=== PATIENT | male | born 1995 | race African-American/Black ===

== ENCOUNTER 2019-11-05 12:57 | Emergency (ER) | payer SELFPAY ==
[~2019-11-05] VITALS: Ht 170.1 cm; Wt 69.5 kg
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
--- NOTE | 2019-11-05 13:17 | ED Integumentary General ---
General Chief Complaint: Skin/Wound Problems Stated Complaint: DRY / ITCHING FACE Source: patient Exam Limitations: no limitations History of Present Illness Date Seen by Provider: Nov 05, 2019 Time Seen by Provider: 13:12 Initial Comments To ER with complaints of an itchy inflamed villareal region for about 2 months that occurs as an exacerbation about 1 week after shaving. Timing/Duration: intermittent Severity: moderate Associated Symptoms: denies symptoms Allergies and Home Medications Patient Home Medication List Home Medication List Reviewed: Yes Review of Systems Review of Systems Constitutional: see HPI EENTM: see HPI Respiratory: no symptoms reported Cardiovascular: no symptoms reported Genitourinary: no symptoms reported Musculoskeletal: no symptoms reported Skin: see HPI Psychiatric/Neurological: No Symptoms Reported Endocrine: No Symptoms Reported Hematologic/Lymphatic: No Symptoms Reported Past Ejgczyp-Nomcuo-Ohchji Hx Patient Social History Recent Foreign Travel: No Contact w/Someone Who Travel: No Physical Exam Vital Signs Vital Signs - First Documented 11/05/19 13:00 Pulse 68 Resp 18 B/P (MAP) 137/70 (92) Pulse Ox 99 O2 Delivery Room Air Capillary Refill : General Appearance: WD/WN, no apparent distress HEENT: PERRL/EOMI, normal ENT inspection Neck: non-tender, full range of motion, other (abscess or cellulitis, there is the appearance of a folliculitis with pustules around the hair follicles and some scaling skin. He states very itchy.) Respiratory: no respiratory distress, no accessory muscle use Extremities: normal range of motion, non-tender Neurologic/Psychiatric: alert, normal mood/affect, oriented x 3 Skin: normal color, warm/dry Skin Problem Location: face Skin Problem Character: other (pustules) Progress/Results/Core Measures Results/Orders Vital Signs/I&O 11/05/19 13:00 Pulse 68 Resp 18 B/P (MAP) 137/70 (92) Pulse Ox 99 O2 Delivery Room Air Departure Impression Primary Impression: Tinea barbae Disposition: 01 HOME, SELF-CARE Condition: Stable Departure-Patient Inst. Decision time for Depature: 13:15 Referrals: [facility] (PCP/Family) Primary Care Physician Patient Instructions: Bacterial Folliculitis (DC), Fungal Skin Rash Add. Discharge Instructions: 1. Do not shave for a month or so, use just a gia in the meantime. Take the topical antifungal cream in addition to the oral antifungal and oral antibiotic as directed. Follow-up with Dr Marino All discharge instructions reviewed with patient and/or family. Voiced understanding. Scripts Clotrimazole (Clotrimazole) 15 Gm Cream..g. 15 GM TP BID for 7 Days, #1 TUBE Prov: ALLYSON LY APRN 11/05/19 Fluconazole (Diflucan) 150 Mg Tablet 300 MG PO WEEK, #8 TAB Prov: ALLYSON LY APRN 11/05/19 Doxycycline Hyclate (Doxycycline Hyclate) 100 Mg Tablet 100 MG PO BID, #20 TAB 0 Refills Prov: ALLYSON LY APRN 11/05/19 ALLYSON LY APRN Nov 05, 2019 13:17
[2019-11-05] MEDS ORDERED: DOXY100T2 PO (13:22)
[2019-11-05] MEDS ORDERED: FLUC150T PO (13:22)
[2019-11-05] MEDS ORDERED: CLOT15CR5 TP (13:23)
[2019-11-05 13:29] VITALS: BP 137/70
== END 2019-11-05 13:27 | disposition home or self-care (01) ==
LOC: ER 12:59
DX: B35.0 Tinea barbae and tinea capitis (principal)
CPT/HCPCS: 99282

== ENCOUNTER 2021-08-24 10:28 | Emergency (ER) | payer SELFPAY ==
[~2021-08-24] VITALS: Ht 187.9 cm; Wt 68.4 kg
[~2021-08-24 10:28] MED LIST: CLOT15CR28 TP; DOXY100T2 PO; FLUC150T PO
[2021-08-24] MEDS ORDERED: CYCLOBENZAPRINE 10 MG (FLEXERIL) TAB PO STA (11:34)
[2021-08-24] MEDS ORDERED: IBUPROFEN 800 MG (MOTRIN) TAB PO STA (11:34)
[2021-08-24] MEDS ORDERED: CYCL10TA25 PO (11:38)
--- NOTE | 2021-08-24 11:39 | ED Back Pain ---
General Chief Complaint: Back Problems Stated Complaint: L SHOULDER/BACK PAIN Nursing Triage Note: UPPER BACK, LEFT SHOULDER PAIN X1 WEEK. FEELS LIKE ITS WORSENING. FEELS LIKE ITS AFFECTING HIS POSTURE AND HIS ABILITY TO MOVE HIS LEFT ARM FULLY. PT DENIES INJURY. (GARRY CANO) History of Present Illness Date Seen by Provider: Aug 24, 2021 Time Seen by Provider: 11:20 Initial Comments 26-year-old -[place] Citizen male presents for left rhomboid pain that has been present for approximately 1 week. He denies any specific injuries to his back. The pain radiates at times from the rhomboid over into the left shoulder. The patient describes it as "insynchronicity" between his right and left sides. No previous history of injuries to his upper back or left shoulder. 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 He has not taken any Tylenol or ibuprofen for his symptoms. Timing/Duration: 1 Week Severity: Moderate Pain/Injury Location: Other (Left rhomboid) Associated Symptoms: muscle spasms; No weakness, No numbness in legs/feet, No tingling in legs/feet, No sensory/motor loss, No lower back pain (GARRY CANO) Allergies and Home Medications Allergies Coded Allergies: No Known Drug Allergies (Unverified , 08/24/21) Patient Home Medication List Home Medication List Reviewed: Yes (GARRY CANO) Clotrimazole (Clotrimazole) 15 Gm Cream..g., 15 GM TP BID Prescribed by: ALLYSON LY on 11/05/19 1323 Cyclobenzaprine HCl (Cyclobenzaprine HCl) 10 Mg Tablet, 10 MG PO Q8H PRN for SPASMS Prescribed by: GARRY CANO on 08/24/21 1138 Doxycycline Hyclate (Doxycycline Hyclate) 100 Mg Tablet, 100 MG PO BID Prescribed by: ALLYSON LY on 11/05/19 1322 Fluconazole (Diflucan) 150 Mg Tablet, 300 MG PO WEEK Prescribed by: ALLYSON LY on 11/05/19 1322 Review of Systems Constitutional: no symptoms reported, see HPI Musculoskeletal: see HPI, muscle pain (Left rhomboid) (GARRY CANO) All Other Systems Reviewed Negative Unless Noted: Yes (GARRY CANO) Past Utpmgdg-Lwrbny-Ltsnwr Hx Patient Social History Tobacco Use?: No Use of E-Cig and/or Vaping dev: No Substance use?: No Alcohol Use?: Yes Alcohol type: Hard Liquor Alcohol Frequency: Several times a month Pt feels they are or have been: No (GARRY CANO) Immunizations Up To Date Influenza Vaccine Up-to-Date: No; Not Current (GARRY CANO) Past Medical History Surgeries: No Respiratory: No Cardiac: No Neurological: No Genitourinary: No Gastrointestinal: No Musculoskeletal: No Endocrine: No HEENT: No Cancer: No Psychosocial: No Integumentary: No (GARRY CANO) Family Medical History Reviewed Nursing Family Hx (GARRY CANO) Physical Exam Vital Signs Vital Signs - First Documented 08/24/21 10:40 Temp 36.4 Pulse 85 Resp 16 B/P (MAP) 128/68 (88) Pulse Ox 99 O2 Delivery Room Air (SKIP KAUR MD) Vital Signs Capillary Refill : Less Than 3 Seconds (GARRY CANO) Height, Weight, BMI Height: '" Weight: lbs. oz. kg; 19.00 BMI Method: General Appearance: No Apparent Distress, WD/WN Neck: Full Range of Motion, Normal Inspection, Non Tender, Supple, Other (No tenderness along the trapezius muscle.) Cardiovascular: Regular Rate, Rhythm, No Edema, No Murmur, Normal Peripheral Pulses Respiratory: Chest Non Tender, Lungs Clear, Normal Breath Sounds Back: Normal Inspection, No CVA Tenderness Extremity: Normal Capillary Refill, Normal Inspection, Normal Range of Motion, Other (Full range of motion to the left shoulder with no instability. Power in his left upper extremity is 5/5. Exquisite tenderness to palpation in the left rhomboid.) Neurologic/Psychiatric: Alert, Oriented x3, No Motor/Sensory Deficits, Normal Mood/Affect (GARRY CANO) Progress/Results/Core Measures Results/Orders Vital Signs/I&O 08/24/21 08/24/21 10:40 11:54 Temp 36.4 Pulse 85 67 Resp 16 14 B/P (MAP) 128/68 (88) 133/79 Pulse Ox 99 98 O2 Delivery Room Air Room Air (SKIP KAUR MD) Blood Pressure Mean: 88 Departure Impression Primary Impression: Rhomboid muscle strain Qualified Codes: S29.012A - Strain of muscle and tendon of back wall of thorax, initial encounter Disposition: 01 HOME, SELF-CARE Condition: Improved Departure-Patient Inst. Decision time for Depature: 11:30 (GARRY CANO) Referrals: [facility] (PCP/Family) Primary Care Physician Patient Instructions: Back Muscle Strain (DC) Add. Discharge Instructions: Use warm moist towels on the area of discomfort every 2-3 hours. Continue range of motion to your left shoulder. Avoid boxing and any other activities that cause the pain to be worse. You can alternate Tylenol 650 mg with ibuprofen 600 mg every 4 hours for pain. Use the Flexeril 1 tablet every 8 hours as needed for muscle spasms. Follow-up at [facility] if your symptoms are not improving or worsen. Return to the emergency department for new, urgent healthcare problems. All discharge instructions reviewed with patient and/or family. Voiced understanding. Scripts Cyclobenzaprine HCl (Cyclobenzaprine HCl) 10 Mg Tablet 10 MG PO Q8H PRN for SPASMS, #15 TAB 0 Refills Prov: GARRY CANO 08/24/21 ATTENDING PHYSICIAN NOTE: I was physically present as attending physician in the emergency department during the care of this patient, but I was not directly involved in the decision making or delivery of care for this patient. (SKIP KAUR MD) GARRY CANO Aug 24, 2021 11:39 SKIP KAUR MD Aug 25, 2021 06:59
[2021-08-24 11:54] VITALS: BP 133/79
== END 2021-08-24 11:52 | disposition home or self-care (01) ==
LOC: EDUNIT# 10:28 → ER 10:30
DX: S29.012A Strain of muscle and tendon of back wall of thorax, initial encounter (principal); X58.XXXA Exposure to other specified factors, initial encounter
CPT/HCPCS: 99283

== ENCOUNTER 2022-02-01 17:09 | Emergency (ER) | payer SELFPAY ==
[~2022-02-01] VITALS: Ht 190 cm; Wt 77.0 kg
[~2022-02-01 17:09] MED LIST changes: +CYCL10TA25 PO
--- NOTE | 2022-02-01 17:34 | ED Respiratory ---
General Chief Complaint: Respiratory Problems Stated Complaint: ABD PAIN Nursing Triage Note: PT REPORTS TO ED POV FOR SOME SHORTNESS OF AIR ISSUES FOR OVER A MONTH OR TWO. PER PT IT HAS RECENTLY GOTTEN WORSE. PT AMB. TO ROOM 05 WITHOUT DIFFICULTY. PT ALERT AND ORIENTED X'S 4. (JUANITA DE SANTIAGO APRN) History of Present Illness Date Seen by Provider: Feb 01, 2022 Time Seen by Provider: 17:25 Initial Comments Patient arrives to the department with shortness of breath for the past few months. States that he feels like he is breathing with his belly. Denies alcohol or drug use. Has not seen anybody for these symptoms. Denies taking medications on a daily basis. Timing/Duration: other (couple months) Prior Episodes/Possible Cause: frequent episodes Associated Symptoms: No chest pain/soreness, No cough, No dizziness, No muscle aches; shortness of breath; No sore throat (JUANITA DE SANTIAGO APRN) Allergies and Home Medications Allergies Coded Allergies: No Known Drug Allergies (Unverified , 08/24/21) Patient Home Medication List Home Medication List Reviewed: Yes (JUANITA DE SANTIAGO APRN) Clotrimazole (Clotrimazole) 15 Gm Cream..g., 15 GM TP BID Prescribed by: ALLYSON LY on 11/05/19 132 Cyclobenzaprine HCl (Cyclobenzaprine HCl) 10 Mg Tablet, 10 MG PO Q8H PRN for SPASMS Prescribed by: GARRY CANO on 08/24/21 1138 Doxycycline Hyclate (Doxycycline Hyclate) 100 Mg Tablet, 100 MG PO BID Prescribed by: ALLYSON LY on 11/05/19 1322 Fluconazole (Diflucan) 150 Mg Tablet, 300 MG PO WEEK Prescribed by: ALLYSON LY on 11/05/19 1322 Hydroxyzine HCl (Hydroxyzine HCl) 25 Mg Tablet, 25 MG PO TID PRN for ANXIETY Prescribed by: Juanita De Santiago on 02/01/221837 Sulfamethoxazole/Trimethoprim (Bactrim Ds Tablet) 800 Mg-160 Mg Tablet, 1 EACH PO BID Prescribed by: Juanita De Santiago on 02/01/221837 Review of Systems Review of Systems Constitutional: No chills, No dizziness, No fever, No malaise, No weakness EENTM: no symptoms reported Respiratory: No cough, No dyspnea on exertion; short of breath; No stridor, No wheezing Cardiovascular: No chest pain, No palpitations Gastrointestinal: No abdominal pain, No constipation, No diarrhea, No nausea, No vomiting Genitourinary: No dysuria, No frequency Musculoskeletal: No back pain Skin: No pruritus, No rash (JUANITA DE SANTIAGO APRN) All Other Systems Reviewed Negative Unless Noted: Yes (JUANITA DE SANTIAGO APRN) Past Qqcenub-Tuimny-Keoyoh Hx Patient Social History Tobacco Use?: No Use of E-Cig and/or Vaping dev: No E-Cig or Vaping type used: Nicotine, Marijuana Additional E-Cig or Vaping: QUIT TWO YEARS AGO. Use of E-Cig and/or Vaping Cole: Former User Substance use?: No Alcohol Use?: No Pt feels they are or have been: No (JUANITA DE SANTIAGO APRN) Past Medical History Surgery/Hospitalization HX: PT DENIES PMH AND SURGERIES. Surgeries: No Respiratory: No Cardiac: No Neurological: No Genitourinary: No Gastrointestinal: No Musculoskeletal: No Endocrine: No HEENT: No Cancer: No Psychosocial: No Integumentary: No (JUANITA DE SANTIAGO APRN) Family Medical History Reviewed Nursing Family Hx (JUANITA DE SANTIAGO APRN) Physical Exam Vital Signs - First Documented 02/01/22 17:19 Temp 36.9 Pulse 94 Resp 16 B/P (MAP) 132/82 (99) Pulse Ox 96 O2 Delivery Room Air (SKIP KAUR MD) Capillary Refill : Less Than 3 Seconds (JUANITA DE SANTIAGO APRN) Height: '" Weight: lbs. oz. kg; 21.00 BMI Method: General Appearance: WD/WN, no apparent distress Eyes: Bilateral Eye Normal Inspection HEENT: PERRL/EOMI, normal ENT inspection, TMs normal, pharynx normal Neck: non-tender, full range of motion, supple, normal inspection Respiratory: chest non-tender, lungs clear, normal breath sounds, no respiratory distress, no accessory muscle use Cardiovascular: regular rate, rhythm, no edema Gastrointestinal: normal bowel sounds, non tender, soft, no organomegaly Extremities: normal range of motion, non-tender, normal inspection, no pedal edema Neurologic/Psychiatric: alert, normal mood/affect, oriented x 3 Skin: normal color, warm/dry (JUANITA DE SANTIAGO APRN) Progress/Results/Core Measures Suspected Sepsis SIRS Temperature: Pulse: 94 Respiratory Rate: 16 Laboratory Tests 02/01/22 17:40: White Blood Count 5.8 Blood Pressure 132 /82 Mean: 99 Laboratory Tests 02/01/22 17:40: Creatinine 1.14, Platelet Count 252, Total Bilirubin 0.8 (JUANITA DE SANTIAGO APRN) Results/Orders Lab Results Laboratory Tests Test 02/01/22 17:40 02/01/22 17:52 Range/Units White Blood Count 5.8 4.3-11.0 10^3/uL Red Blood Count 4.79 4.30-5.52 10^6/uL Hemoglobin 15.2 13.3-17.7 g/dL Hematocrit 44 40-54 % Mean Corpuscular Volume 91 80-99 fL Mean Corpuscular Hemoglobin 32 25-34 pg Mean Corpuscular Hemoglobin Concent 35 32-36 g/dL Red Cell Distribution Width 10.9 10.0-14.5 % Platelet Count 252 130-400 10^3/uL Mean Platelet Volume 9.6 9.0-12.2 fL Immature Granulocyte % (Auto) 0 % Neutrophils (%) (Auto) 56 42-75 % Lymphocytes (%) (Auto) 32 12-44 % Monocytes (%) (Auto) 11 0-12 % Eosinophils (%) (Auto) 1 0-10 % Basophils (%) (Auto) 0 0-10 % Neutrophils # (Auto) 3.2 1.8-7.8 10^3/uL Lymphocytes # (Auto) 1.9 1.0-4.0 10^3/uL Monocytes # (Auto) 0.6 0.0-1.0 10^3/uL Eosinophils # (Auto) 0.1 0.0-0.3 10^3/uL Basophils # (Auto) 0.0 0.0-0.1 10^3/uL Immature Granulocyte # (Auto) 0.0 0.0-0.1 10^3/uL Sodium Level 137 135-145 MMOL/L Potassium Level 4.1 3.6-5.0 MMOL/L Chloride Level 103 98-107 MMOL/L Carbon Dioxide Level 22 21-32 MMOL/L Anion Gap 12 5-14 MMOL/L Blood Urea Nitrogen 10 7-18 MG/DL Creatinine 1.14 0.60-1.30 MG/DL Estimat Glomerular Filtration Rate 92 BUN/Creatinine Ratio 9 Glucose Level 79 70-105 MG/DL Calcium Level 9.4 8.5-10.1 MG/DL Corrected Calcium 9.2 8.5-10.1 MG/DL Total Bilirubin 0.8 0.1-1.0 MG/DL Aspartate Amino Transf (AST/SGOT) 20 5-34 U/L Alanine Aminotransferase (ALT/SGPT) 14 0-55 U/L Alkaline Phosphatase 57 40-136 U/L Total Protein 7.8 6.4-8.2 GM/DL Albumin 4.3 3.2-4.5 GM/DL Lipase 5 L 8-78 U/L Urine Color JENELLE H Urine Clarity SL CLOUDY Urine pH 6.5 5-9 Urine Specific [place] 1.020 1.016-1.022 Urine Protein 1+ H NEGATIVE Urine Glucose (UA) NEGATIVE NEGATIVE Urine Ketones TRACE H NEGATIVE Urine Nitrite NEGATIVE NEGATIVE Urine Bilirubin 1+ H NEGATIVE Urine Urobilinogen 1.0 < = 1.0 MG/DL Urine Leukocyte Esterase 1+ H NEGATIVE Urine RBC (Auto) NEGATIVE NEGATIVE Urine RBC NONE /HPF Urine WBC 10-25 H /HPF Urine Squamous Epithelial Cells NONE /HPF Urine Crystals NONE /LPF Urine Bacteria FEW H /HPF Urine Casts NONE /LPF Urine Mucus MODERATE H /LPF Urine Culture Indicated YES Urine Opiates Screen NEGATIVE NEGATIVE Urine Oxycodone Screen NEGATIVE NEGATIVE Urine Methadone Screen NEGATIVE NEGATIVE Urine Propoxyphene Screen NEGATIVE NEGATIVE Urine Barbiturates Screen NEGATIVE NEGATIVE Ur Tricyclic Antidepressants Screen NEGATIVE NEGATIVE Urine Phencyclidine Screen NEGATIVE NEGATIVE Urine Amphetamines Screen NEGATIVE NEGATIVE Urine Methamphetamines Screen NEGATIVE NEGATIVE Urine Benzodiazepines Screen NEGATIVE NEGATIVE Urine Cocaine Screen NEGATIVE NEGATIVE Urine Cannabinoids Screen POSITIVE H NEGATIVE (SKIP KAUR MD) Medications Given in ED Current Medications Medications Dose Ordered Sig/Gt Route Start Time Stop Time Status Last Admin Dose Admin Hydroxyzine HCl 50 mg ONCE ONCE PO 02/01/22 17:45 02/01/22 17:46 DC 02/01/22 17:48 50 MG (SKIP KAUR MD) Vital Signs/I&O 02/01/22 02/01/22 17:19 18:48 Temp 36.9 36.9 Pulse 94 81 Resp 16 16 B/P (MAP) 132/82 (99) 115/75 Pulse Ox 96 98 O2 Delivery Room Air Room Air (SKIP KAUR MD) Vital Signs/I&O Capillary Refill : Less Than 3 Seconds (JUANITA DE SANTIAGO APRN) Blood Pressure Mean: 99 Progress Note : Progress Note Patient seems very anxious on initial exam. Will obtain labs and CXR and determine further plan of care based on that. 1824: Spoke to patient in regards to labs and XR results. Based on exam findings here I think that the majority of his symptoms are likely in relation to anxiety. He was not hypoxic while he was here in the department. Drug screen was positive for THC. Initially denied drug use then admitted once asked after the positive screen. Of note, his UA was positive for infection so will go ahead and treat for that. Do not think that is necessarily the cause of his symptoms as he had no urinary complaints. Will send home with Bactrim for the UTI and Hydroxyzine to take for anxiety. Reasons to return to the ER were discussed with patient. (JUANITA DE SANTIAGO APRN) Departure Impression Primary Impression: UTI (urinary tract infection) Qualified Codes: N30.00 - Acute cystitis without hematuria Additional Impression: Anxiety Disposition: HOME, SELF-CARE Condition: Stable Departure-Patient Inst. Decision time for Depature: 18:34 (JUANITA DE SANTIAGO APRN) Referrals: [facility] (PCP/Family) Primary Care Physician Patient Instructions: Urinary Tract Infections in Adults, Anxiety, Adult ED Add. Discharge Instructions: 1. Home and rest. 2. Push fluids. 3. Alternate Tylenol/Ibuprofen as needed for pain. 4. Follow up with PCP for further evaluation and treatment if symptoms continue to persist. 5. Bactrim as directed until finished. 6. Hydroxyzine as directed as needed for anxiety. Be mindful while driving as this medication can cause drowsiness. 7. Return here if worse or concerns. All discharge instructions reviewed with patient and/or family. Voiced understanding. Scripts Hydroxyzine HCl (Hydroxyzine HCl) 25 Mg Tablet 25 MG PO TID PRN for ANXIETY, #20 TAB Prov: JUANITA DE SANTIAGO APRN 02/01/22 Sulfamethoxazole/Trimethoprim (Bactrim Ds Tablet) 800 Mg-160 Mg Tablet 1 EACH PO BID, #14 TAB Prov: JUANITA DE SANTIAGO APRN 02/01/22 ATTENDING NOTE: I was attending physician physically present and available for consultation in the emergency department during the care of this patient. I was not directly involved in the delivery of care or decision making process for this patient during this specific encounter. (SKIP KAUR MD) JUANITA DE SANTIAGO APRN Feb 01, 2022 17:34 SKIP KAUR MD Feb 01, 2022 18:58
[2022-02-01] MEDS ORDERED: hydrOXYzine (ATARAX) 10 MG TAB PO ONE (17:45)
[2022-02-01 17:47] LABS: BASOPHILS % (AUTO) 0 % (0-10); EOSINOPHILS # (AUTO) 0.1 10^3/uL (0.0-0.3); EOSINOPHILS % (AUTO) 1 % (0-10); HEMATOCRIT 44 % (40-54); HEMOGLOBIN 15.2 g/dL (13.3-17.7); LYMPHOCYTES # (AUTO) 1.9 10^3/uL (1.0-4.0); LYMPHOCYTES % (AUTO) 32 % (12-44); MEAN CORPUSCULAR HEMOGLOBIN 32 pg (25-34); MEAN CORPUSCULAR HGB CONC 35 g/dL (32-36); MEAN CORPUSCULAR VOLUME 91 fL (80-99); MEAN PLATELET VOLUME 9.6 fL (9.0-12.2); MONOCYTES # (AUTO) 0.6 10^3/uL (0.0-1.0); MONOCYTES % (AUTO) 11 % (0-12); NEUTROPHILS # (AUTO) 3.2 10^3/uL (1.8-7.8); NEUTROPHILS % (AUTO) 56 % (42-75); PLATELET COUNT 252 10^3/uL (130-400); WHITE BLOOD COUNT 5.8 10^3/uL (4.3-11.0)
[2022-02-01 17:57] LABS: ALBUMIN 4.3 GM/DL (3.2-4.5)
[2022-02-01 17:58] LABS: POTASSIUM 4.1 MMOL/L (3.6-5.0)
[2022-02-01 17:59] LABS: CALCIUM 9.4 MG/DL (8.5-10.1)
[2022-02-01 18:00] LABS: TOTAL PROTEIN 7.8 GM/DL (6.4-8.2)
[2022-02-01 18:02] LABS: BILIRUBIN,TOTAL 0.8 MG/DL (0.1-1.0)
[2022-02-01 18:04] LABS: CLARITY,URINE SL CLOUDY; COLOR,URINE AMBER; GLUCOSE, URINE (UA) NEGATIVE (NEGATIVE); KETONES,URINE TRACE (NEGATIVE); LEUKOCYTE ESTERASE ,URINE 1+ (NEGATIVE); NITRITE,URINE NEGATIVE (NEGATIVE); PH,URINE 6.5 (5-9); PROTEIN,URINE 1+ (NEGATIVE)
[2022-02-01 18:04] LABS: CREATININE SERUM 1.14 MG/DL (0.60-1.30)
--- NOTE | 2022-02-01 18:17 | Diagnostic Imaging Report ---
INDICATION: Shortness of breath. EXAMINATION: Frontal chest was obtained at 6:04 p.m. Heart and mediastinal silhouette are normal in appearance. The lungs are clear. There is no pneumothorax or pleural fluid. IMPRESSION: Negative chest. Dictated by: Dictated on workstation # [id number]
[2022-02-01 18:20] LABS: AMPHETAMINE SCREEN, URINE NEGATIVE (NEGATIVE); BARBITURATE SCREEN URINE NEGATIVE (NEGATIVE); BENZODIAZEPINES SCREEN URINE NEGATIVE (NEGATIVE); CANNABINOID SCREEN, URINE POSITIVE (NEGATIVE); COCAINE SCREEN URINE NEGATIVE (NEGATIVE); METHADONE STAT NEGATIVE (NEGATIVE); OPIATE SCREEN URINE NEGATIVE (NEGATIVE); OXYCODONE STAT NEGATIVE (NEGATIVE); PROPOXYPHENE STAT NEGATIVE (NEGATIVE); TRICYCLIC ANTIDEPRESSANTS SCRE NEGATIVE (NEGATIVE)
[2022-02-01 18:24] LABS: BILIRUBIN,URINE 1+ (NEGATIVE)
[2022-02-01 18:25] LABS: BACTERIA,URINE FEW /HPF
[2022-02-01] MEDS ORDERED: SULF-221 PO (18:38)
[2022-02-01] MEDS ORDERED: HYDR-700 PO (18:38)
[2022-02-01 18:48] VITALS: BP 115/75
== END 2022-02-01 18:48 | disposition home or self-care (01) ==
LOC: EDUNIT# 17:09 → ER 17:15
DX: N39.0 Urinary tract infection, site not specified (principal); F41.9 Anxiety disorder, unspecified; Z87.891 Personal history of nicotine dependence; Z28.310 Unvaccinated for COVID-19
CPT/HCPCS: 36415; 71045; 80053; 80306; 81000; 83690; 85025; 87088